=== PATIENT | male | born 1975 | race Caucasian/White ===

== ENCOUNTER 2019-09-14 21:33 | Emergency (ER) | payer MEDICARE ==
[~2019-09-14] VITALS: Ht 177.8 cm; Wt 108.2 kg
[~2019-09-14 21:33] MED LIST: AMIT-189 PO; ASPI-1071 PO; CLON-527 PO; LEVO50TA67 PO; LOSA25TA96 PO; NORCO10T PO; OMEP-84 PO
[2019-09-14 21:37] VITALS: BP 145/81
[2019-09-14] MEDS ORDERED: ketorolac trometh. 30mg/ml inj. IM ONE (22:40)
[2019-09-14] MEDS ORDERED: orphenadrine citrate 60mg/2ml inj. IM ONE (22:40)
[2019-09-14] MEDS ORDERED: HYDROcodone/acetaminophen 10/325mg tab PO ONE (22:40)
[2019-09-14] MEDS ORDERED: IBUP-1984 PO (22:46)
[2019-09-14] MEDS ORDERED: CYCL-1 PO (22:46)
== END 2019-09-14 23:17 | disposition home or self-care (01) ==
LOC: ER 21:34
DX: M54.31 Sciatica, right side (principal); M54.9 Dorsalgia, unspecified; E78.00 Pure hypercholesterolemia, unspecified; I10 Essential (primary) hypertension; K21.9 Gastro-esophageal reflux disease without esophagitis; E11.9 Type 2 diabetes mellitus without complications; F41.9 Anxiety disorder, unspecified; Z88.5 Allergy status to narcotic agent; Z79.82 Long term (current) use of aspirin; Z79.899 Other long term (current) drug therapy
CPT/HCPCS: 96372; 99283; J1885; J2360

== ENCOUNTER 2021-03-22 23:49 | Emergency (ER) | payer MEDICARE, MEDICAID ==
[~2021-03-22] VITALS: Ht 177.8 cm; Wt 104.5 kg
[~2021-03-22 23:49] MED LIST changes: +CYCL-1 PO; +PANT-47 PO
[2021-03-22 23:56] VITALS: BP 164/105
--- NOTE | 2021-03-23 01:01 | NUR ---
REPEAT BG [phone]
--- NOTE | 2021-03-23 02:30 | NUR ---
PATIENT STATED HE FELT FINE AND WOULD CONTINUE TO MONITOR HIS BG AT HOME LEFT BEFORE PROVIDER COULD SEE HIM
== END 2021-03-23 01:30 | disposition left against medical advice (07) ==
LOC: ER 23:50
DX: T38.3X1A Poisoning by insulin and oral hypoglycemic [antidiabetic] drugs, accidental (unintentional), initial encounter (principal); Z53.21 Procedure and treatment not carried out due to patient leaving prior to being seen by health care provider; Y92.89 Other specified places as the place of occurrence of the external cause
CPT/HCPCS: 82948

== ENCOUNTER 2021-07-10 09:21 | Emergency (ER) | payer MEDICARE, MEDICAID ==
[~2021-07-10] VITALS: Ht 177.8 cm; Wt 103.6 kg
[2021-07-10 10:06] LABS: CLARITY,URINE CLOUDY (Clear); COLOR,URINE YELLOW (Yellow); GLUCOSE, URINE NEGATIVE (Neg); KETONES,URINE 15 mg/dl (Neg); OCCULT BLOOD,URINE NEGATIVE (Neg); PROTEIN,URINE 30 mg/dl (Neg); UA COLLECTION TYPE CLN CATCH MIDSTREAM
[2021-07-10 10:07] LABS: LEUKOCYTE ESTERASE ,URINE NEGATIVE (Neg); NITRITES, URINE NEGATIVE (Neg)
[2021-07-10 10:11] LABS: BASOPHILS % (AUTO) 0.4 % (0-1); EOSINOPHILS # (AUTO) 0.1 X10'3 (0-0.9); EOSINOPHILS % (AUTO) 1.8 % (0-6); HEMATOCRIT 46.2 % (42.0-52.0); LYMPHOCYTES # (AUTO) 1.2 X10'3 (1.1-4.8); LYMPHOCYTES % (AUTO) 19.7 % (21-51); MEAN CORPUSCULAR HEMOGLOBIN 23.5 PG (27.0-31.0); MEAN CORPUSCULAR HGB CONC 32.4 g/dL (33.0-36.5); MEAN CORPUSCULAR VOLUME 72.6 FL (78-98); MEAN PLATELET VOLUME 8.4 FL (7.4-10.4); MONOCYTES # (AUTO) 0.4 X10'3 (0-0.9); NEUTROPHILS # (AUTO) 4.4 X10'3 (1.8-7.7); NEUTROPHILS % (AUTO) 71.1 % (42-75); PLATELET COUNT 313 X10'3 (140-440); RED BLOOD COUNT 6.36 X10'6 (4.70-6.10); RED CELL DISTRIBUTION WIDTH 24.4 % (11.5-14.5); WHITE BLOOD COUNT 6.2 X10'3 (4.5-11.0)
[2021-07-10 10:21] LABS: MUCUS STRANDS MANY /LPF (Neg)
[2021-07-10 10:22] LABS: BACTERIA,URINE FEW /HPF (Neg); RBC,URINE 0-2 /HPF (0-2); SQUAMOUS EPITHELIAL CELL,UR FEW /LPF (FEW); WBC,URINE 0-4 /HPF (0-4)
[2021-07-10 10:25] LABS: ALANINE AMINOTRANSFERASE 96 U/L (12-78); ALBUMIN 3.7 G/DL (3.4-5.0); ALBUMIN/GLOBULIN RATIO 0.8 (1.1-1.5); ALKALINE PHOSPHATASE 50 IU/L (46-116); AMYLASE 56 U/L (25-115); ANION GAP 8 (8-16); ASPARTATE AMINO TRANSFERASE 58 U/L (10-37); BILIRUBIN,TOTAL 0.8 MG/DL (0.1-1.0); BLOOD UREA NITROGEN 14 MG/DL (7-18); CALCIUM 8.7 MG/DL (8.5-10.1); CHLORIDE 101 MMOL/L (99-107); CREATININE 1.56 MG/DL (0.60-1.10); GLUCOSE 130 MG/DL (70-104); LIPASE 112 U/L (73-393); POTASSIUM 5.1 MMOL/L (3.5-5.1); SODIUM 137 MMOL/L (135-145); TOTAL CARBON DIOXIDE 28.5 MMOL/L (24-32); TOTAL PROTEIN 8.3 G/DL (6.4-8.2); eGFR 48 ML/MIN
[2021-07-10 11:59] LABS: ANISOCYTOSIS 3+; MICROCYTOSIS 1+; PLATELET ESTIMATE NORMAL
[2021-07-10 12:00] LABS: ELLIPTOCYTES 1+; POLYCHROMASIA FEW
[2021-07-10 12:01] LABS: TEAR DROP CELLS FEW
[2021-07-10] MEDS ORDERED: ondansetron/PF 4mg/2ml inj IV ONE (13:10)
[2021-07-10] MEDS ORDERED: normal saline 1000ml 1,000 ML IV ONE (13:10)
[2021-07-10] MEDS ORDERED: pantoprazole 40 MG vial IV ONE (13:10)
[2021-07-10] MEDS ORDERED: morphine 4 MG/ML inj SYRINge IV ONE (13:10)
[2021-07-10 15:36] VITALS: BP 124/76
== END 2021-07-10 16:00 | disposition home or self-care (01) ==
LOC: ER 09:22
DX: R10.13 Epigastric pain (principal); K44.9 Diaphragmatic hernia without obstruction or gangrene; E78.00 Pure hypercholesterolemia, unspecified; I10 Essential (primary) hypertension; K21.9 Gastro-esophageal reflux disease without esophagitis; E11.9 Type 2 diabetes mellitus without complications; Z88.8 Allergy status to other drugs, medicaments and biological substances; Z79.82 Long term (current) use of aspirin; Z79.899 Other long term (current) drug therapy
CPT/HCPCS: 36415; 71045; 74176; 76700; 80053; 81001; 82150; 83690; 83880; 84484; 85008; 85025; 93005; 96361; 96365; 96375; 99285; C9113; J2270; J2405; J7030

== ENCOUNTER → 2024-03-01 | Outpatient (CLI) | payer MEDICARE, MEDICAID ==
[~2024-03-01] MED LIST changes: -AMIT-189 PO; +AMIT-311 PO; +LOSA-415 PO; -LOSA25TA96 PO
== END | disposition home or self-care (01) ==
LOC: MRI 13:25
PROVIDERS: ATTEND Orthopaedic Surgery
DX: S46.011A Strain of muscle(s) and tendon(s) of the rotator cuff of right shoulder, initial encounter (principal); M25.511 Pain in right shoulder; R60.9 Edema, unspecified; M89.311 Hypertrophy of bone, right shoulder; X58.XXXA Exposure to other specified factors, initial encounter; Y93.89 Activity, other specified; Y92.89 Other specified places as the place of occurrence of the external cause; Y99.8 Other external cause status
CPT/HCPCS: 73221